=== PATIENT | female | born 1985 | race Two or more races ===

== ENCOUNTER 2023-03-01 14:34 | Inpatient (IN) | payer OTHER ==
[~2023-03-01] VITALS: Ht 162.6 cm; Wt 108.0 kg
[2023-03-01] MEDS ORDERED: ALBUTEROL SULF 2.5 MG/0.5ML(0.5%) NEB SOLN NEB ONE (15:30)
[2023-03-01] MEDS ORDERED: IPRATROPIUM BROM 0.5 MG/2.5ML INH SOL NEB ONE (15:30)
[2023-03-01] MEDS ORDERED: DexAMETHasone SOD PHOS 10MG/1ML VIAL INJ IM ONE (15:30)
[2023-03-01 15:41] LABS: Eosinophils # (auto) 0.8 10 ^3/uL (0-0.8); Neutrophils # (auto) 11.4 10 ^3/uL (1.6-8.6); Red Blood Cells 4.74 10^6/uL (4.0-5.20)
[2023-03-01 15:44] LABS: Basophils # (auto) 0.2 10 ^3/uL (0-0.2); Eosinophils % (auto) 5.2 % (0.0-7.0); Hematocrit 42.2 % (36.0-46.0); Hemoglobin 13.7 g/dL (12.2-16.2); Lymphocytes # (auto) 2.6 10 ^3/uL (0.4-5.4); Lymphocytes % (auto) 16.2 % (10.0-50.0); Mean Corpuscular Hgb Conc. 32.5 g/dL (32.0-36.0); Mean Corpuscular Volume 89.1 fL (80.0-100.0); Monocytes # (auto) 1.1 10 ^3/uL (0-1.3); Monocytes % (auto) 6.8 % (0.0-12.0); Neutrophils % (auto) 70.8 % (37.0-80.0); Red Cell Distribution Width 17.4 % (11.8-14.3); White Blood Cell 16.1 10^3/uL (4.4-10.8)
[2023-03-01 15:58] LABS: Alanine Aminotransferase 19 U/L (7-40); Albumin 4.5 g/dL (3.2-4.8); Alkaline Phosphatase 94 U/L (46-116); Anion Gap 8 (5-15); Aspartate Aminotransferase 18 U/L (13-40); BUN/Creatinine Ratio 8.4 (10.0-20.0); Blood Urea Nitrogen 11 mg/dL (9-23); Calcium 9.4 mg/dL (8.5-10.1); Carbon Dioxide 27 mmol/L (20-30); Chloride 104 mmol/L (98-107); Glucose 110 mg/dL (74-106); Sodium 139 mmol/L (136-145)
[2023-03-01 15:59] LABS: Bilirubin, Total 0.5 mg/dL (0.2-1.0)
[2023-03-01 16:18] LABS: INR 1.14 (0.9-1.15); Partial Thromboplastin Time 36.4 SEC (24.5-34.5); Prothrombin Time 11.9 sec (9.3-11.8)
[2023-03-01] MEDS ORDERED: PIPERACILLIN-TAZOB 3.375GM 100 ML IV ONE (21:30)
[2023-03-01] MEDS ORDERED: VANCOMYCIN PER PHARMACY 0 MG IV SCH (21:30)
[2023-03-01] MEDS ORDERED: ENOXAPARIN SOD 40 MG/0.4 ML SYRINGE SC ONE (21:30)
[2023-03-01] MEDS ORDERED: VANCOMYCIN 1GM/250ML 250 ML IV ONE (22:00)
[2023-03-01] MEDS ORDERED: MORPHINE SULFATE INJ 2 MG/ml SYRG IV PRN (23:30)
[2023-03-01] MEDS ORDERED: DOCUSATE SOD 100 MG CAP PO PRN (23:30)
[2023-03-01] MEDS ORDERED: HYDROcodone-ACET 5/325MG TAB PO PRN (23:30)
[2023-03-01] MEDS ORDERED: NITROGLYCERIN 0.4 MG SL TAB SL PRN (23:30)
[2023-03-01] MEDS ORDERED: ONDANSETRON HCL 4 MG/2 ML VIAL IV PRN (23:30)
[2023-03-01] MEDS ORDERED: ACETAMINOPHEN 325 MG TAB PO PRN (23:30)
[2023-03-02] VITALS (17 sets, daily range): BP systolic 146–163; BP diastolic 95–100; PULSE 90–111; RESP 18–28; TEMP 98.2–98.6; O2SAT 91–97
[2023-03-02] MEDS ORDERED: IOHEXOL 350 MG/ML 100ML IJ ONE (00:10)
[2023-03-02] MEDS: ALBUTEROL SULF 2.5 MG/0.5ML(0.5%) NEB SOLN NEB PRN ×4 (00:44→18:34)
[2023-03-02] MEDS: IPRATROPIUM BROM 0.5 MG/2.5ML INH SOL NEB PRN ×4 (00:44→18:34)
[2023-03-02] MEDS: SODIUM CHLORIDE 0.9% 1,000 ML IV SCH ×2 (00:53→17:17)
[2023-03-02 02:25] LABS: Urine Bacteria FEW /hpf (None Seen); Urine Blood Negative /uL (Negative); Urine Clarity Clear (Clear); Urine Color Colorless (Yellow); Urine Protein, UAD Negative (Negative); Urine Specific Gravity 1.037 (1.001-1.035); Urine Urobilinogen Normal (Negative); Urine WBC 6 /hpf (0 - 5)
[2023-03-02] MEDS ORDERED: METO25TA5 PO (03:00)
[2023-03-02] MEDS ORDERED: LOSA100T58 PO (03:00)
[2023-03-02] MEDS ORDERED: CLON0.2T PO (03:00)
[2023-03-02] MEDS ORDERED: hydrALAZINE HCL 20 MG/ML VL IV PRN (03:15)
[2023-03-02 05:42] LABS: Basophils # (auto) 0 10 ^3/uL (0-0.2); Eosinophils # (auto) 0 10 ^3/uL (0-0.8); Hemoglobin 13.5 g/dL (12.2-16.2); Lymphocytes # (auto) 1.1 10 ^3/uL (0.4-5.4); Lymphocytes % (auto) 7.2 % (10.0-50.0); Mean Corpuscular Volume 89.7 fL (80.0-100.0); Monocytes # (auto) 0.1 10 ^3/uL (0-1.3); White Blood Cell 15.3 10^3/uL (4.4-10.8)
[2023-03-02 05:49] LABS: Basophils % (auto) 0.2 % (0.0-2.0); Hematocrit 41.2 % (36.0-46.0); Mean Corpuscular Hemoglobin 29.4 pg (28.0-32.0); Mean Corpuscular Hgb Conc. 32.7 g/dL (32.0-36.0); Monocytes % (auto) 0.6 % (0.0-12.0); Neutrophils # (auto) 14.1 10 ^3/uL (1.6-8.6); Red Blood Cells 4.59 10^6/uL (4.0-5.20); Red Cell Distribution Width 17.4 % (11.8-14.3)
[2023-03-02] MEDS: methylPREDNISolone SOD SUCC 40 MG/ML VL IV SCH ×3 (05:52→21:45)
[2023-03-02 06:08] LABS: Alanine Aminotransferase 17 U/L (7-40); Albumin 4.6 g/dL (3.2-4.8); Alkaline Phosphatase 92 U/L (46-116); Anion Gap 13 (5-15); Aspartate Aminotransferase 18 U/L (13-40); BUN/Creatinine Ratio 8.8 (10.0-20.0); Blood Urea Nitrogen 10 mg/dL (9-23); Calcium 9.3 mg/dL (8.5-10.1); Carbon Dioxide 22 mmol/L (20-30); Chloride 104 mmol/L (98-107); Glucose 128 mg/dL (74-106); Potassium 4.1 mmol/L (3.5-5.1); Sodium 139 mmol/L (136-145)
[2023-03-02 06:09] LABS: Total Protein 7.7 g/dL (5.7-8.2)
[2023-03-02 06:18] LABS: Bilirubin, Total 0.3 mg/dL (0.2-1.0)
[2023-03-02] MEDS ORDERED: AZITHROMYCIN 500MG/ 250ML 250 ML IV ONE (10:45)
[2023-03-02] MEDS ORDERED: NIFEdipine ER 30 MG TAB PO ONE (11:15)
[2023-03-02] MEDS ORDERED: METOPROLOL SUCCINATE XL 50 MG TAB PO ONE (11:15)
[2023-03-02] MEDS ORDERED: LOSARTAN POTASSIUM 50 MG TAB PO ONE (11:15)
[2023-03-02] MEDS: ENOXAPARIN SOD 40 MG/0.4 ML SYRINGE SC SCH (11:45)
[2023-03-02] MEDS: FAMOTIDINE (10MG/ML) 2ML VL IV SCH ×2 (11:46→21:45)
[2023-03-02] MEDS: VANCOMYCIN 1GM/250ML 250 ML IV SCH (13:59)
[2023-03-02] MEDS: cloNIDine HCL 0.1 MG TAB PO SCH ×2 (14:00→21:46)
[2023-03-02] MEDS ORDERED: METO25TA93 PO (14:38)
[2023-03-02] MEDS ORDERED: HYDR-4297 PO (14:38)
[2023-03-02] MEDS ORDERED: PRED20TA2 PO (14:38)
[2023-03-02] MEDS ORDERED: ALBU108A5 PO (14:38)
[2023-03-02] MEDS ORDERED: NIFE1TAB30 PO (14:38)
[2023-03-02] MEDS: hydrALAZINE HCL 25 MG TAB PO SCH (21:46)
[2023-03-03] VITALS (8 sets, daily range): BP systolic 142–149; BP diastolic 85–105; PULSE 79–95; RESP 18–20; TEMP 97.6–98.3; O2SAT 90–98
[2023-03-03] MEDS: VANCOMYCIN 1GM/250ML 250 ML IV SCH ×2 (00:36→12:00)
[2023-03-03] MEDS: cloNIDine HCL 0.1 MG TAB PO SCH ×2 (05:08→14:00)
[2023-03-03] MEDS: methylPREDNISolone SOD SUCC 40 MG/ML VL IV SCH ×2 (05:09→13:30)
[2023-03-03] MEDS: ENOXAPARIN SOD 40 MG/0.4 ML SYRINGE SC SCH (09:46)
[2023-03-03] MEDS: SODIUM CHLORIDE 0.9% 1,000 ML IV SCH (09:46)
[2023-03-03] MEDS: FAMOTIDINE (10MG/ML) 2ML VL IV SCH (09:48)
[2023-03-03] MEDS: hydrALAZINE HCL 25 MG TAB PO SCH (09:55)
[2023-03-03] MEDS ORDERED: AZITHROMYCIN 500MG/ 250ML 250 ML IV SCH (10:00)
[2023-03-03] MEDS ORDERED: METOPROLOL SUCCINATE XL 50 MG TAB PO SCH (10:00)
[2023-03-03] MEDS ORDERED: LOSARTAN POTASSIUM 50 MG TAB PO SCH (10:00)
[2023-03-03] MEDS ORDERED: NIFEdipine ER 30 MG TAB PO SCH (10:00)
[2023-03-03] MEDS: ALBUTEROL SULF 2.5 MG/0.5ML(0.5%) NEB SOLN NEB PRN (12:46)
[2023-03-03] MEDS: IPRATROPIUM BROM 0.5 MG/2.5ML INH SOL NEB PRN (12:46)
[2023-03-03] MEDS ORDERED: ALBUAER3 IN (13:53)
[2023-03-03] MEDS ORDERED: AZIT-74 PO (13:53)
[2023-03-03] MEDS ORDERED: METH4PAK PO (13:53)
== END 2023-03-03 16:00 | disposition home or self-care (01) | DRG 139 ==
LOC: ER 14:34 → TELE 23:28 → TELE-WESTW 03-02 15:51
PROVIDERS: ADMIT Nurse Practitioner Family; ATTEND Nurse Practitioner Family
DX: J15.9 Unspecified bacterial pneumonia (principal); N17.9 Acute kidney failure, unspecified; J44.0 Chronic obstructive pulmonary disease with (acute) lower respiratory infection; F17.210 Nicotine dependence, cigarettes, uncomplicated; J98.11 Atelectasis; D75.839 Thrombocytosis, unspecified; R79.89 Other specified abnormal findings of blood chemistry; E66.01 Morbid (severe) obesity due to excess calories; Z79.899 Other long term (current) drug therapy; Z68.41 Body mass index [BMI] 40.0-44.9, adult; Z88.2 Allergy status to sulfonamides; R06.03 Acute respiratory distress
CPT/HCPCS: 36415; 71045; 71275; 80053; 80202; 81001; 83880; 84484; 85025; 85379; 85610; 85730; 87040; 87081; 93005; 94640; 96365; 96367; 96372; G0378; J1100; J2543; J3490

== ENCOUNTER → 2023-03-01 | Emergency (ER) | payer OTHER ==
[~2023-03-01] MED LIST: ALBU108A5 PO; ALBUAER3 IN; AZIT-74 PO; CLON0.2T PO; HYDR-4297 PO; LOSA100T58 PO; METH4PAK PO; METO25TA5 PO; METO25TA93 PO; NIFE1TAB30 PO; PRED20TA2 PO
== END | disposition left against medical advice (07) ==
LOC: ER 11:25
DX: R06.02 Shortness of breath (principal); Z53.21 Procedure and treatment not carried out due to patient leaving prior to being seen by health care provider